=== PATIENT | female | born 1980 | race Caucasian/White ===

== ENCOUNTER → 2018-11-12 | Outpatient (CLI) | payer BC ==
[2018-11-12 12:18] LABS: HCG, SERUM QUANTITATIVE < 1.0 MIU/ML
[2018-11-12 12:20] LABS: ESTRADIOL 32.6 PG/ML; LUTEINIZING HORMONE 4.2 mIU/mL
[2018-11-12 12:21] LABS: FOLLICLE STIMULATING HORMONE 9.7 mIU/mL
== END ==
LOC: M LAB 11:13
PROVIDERS: ATTEND Obstetrics & Gynecology Reproductive Endocrinology
DX: E28.9 Ovarian dysfunction, unspecified (principal)